=== PATIENT | female | born 2000 | race Caucasian/White ===

== ENCOUNTER 2019-10-16 23:09 | Emergency (ER) | payer MEDICAID ==
[2019-10-16 23:27] VITALS: BP 150/87
[2019-10-16] MEDS ORDERED: PENICILLIN V POTASSIUM 500 MG TABLET PO ONE (23:56)
[2019-10-16] MEDS ORDERED: PROMETHAZINE HCL 25 MG TABLET PO ONE (23:57)
[2019-10-16] MEDS ORDERED: OXYCODONE-ACETAMINOPHEN 5-325 MG TABLET PO ONE (23:57)
[2019-10-16] MEDS ORDERED: HYDROCODONE/ACETAMINOPHEN 5-325 MG (6 TAB/ER DISP) PO PRN (23:58)
--- NOTE | 2019-10-16 23:59 | ER Document Report ---
HPI - HPI Time Seen by Provider: 10/16/19 23:49 Pain Level: 5 Context: Patient is a 19-year-old female that comes to the emergency department for chief complaint of dental pain. She states that she has several known dental fractures, she had an appointment with the dentist to have either repair or extractions almost 3 weeks ago but this was postponed because of the pandemic. She states that she has had symptoms intermittently but over the past couple of days symptoms have significantly worsened. She denies swelling of the face but she reports pain to the left lower jaw and right upper gumline. She denies neck pain, throat pain, fever/chills, or any other complaints. She denies . She denies any daily medications. Past Medical History - General Information source: Patient - Social History Smoking Status: Current Every Day Smoker Frequency of alcohol use: None Drug Abuse: None Lives with: Family Family History: Reviewed & Not Pertinent Patient has suicidal ideation: No Patient has homicidal ideation: No - Medical History Medical History: Negative Surgical Hx: Negative - Immunizations Immunizations up to date: Yes Hx Diphtheria, Pertussis, Tetanus Vaccination: Yes Vertical Provider Document - CONSTITUTIONAL General Appearance: WD/WN, No Apparent Distress - Patient has pain with movement of the mouth and with talking, otherwise she does not appear to be in distress - HEENT HEENT: Atraumatic, Normal ENT Exam - ENT exam is normal except for mouth/dental exam. Oral pharyngeal exam unremarkable. See notes below., Normocephalic Mouth Diagram: 1 - Dental caries with surrounding erythema and tenderness 2 - Dental caries with surrounding erythema and tenderness. No induration or fluctuance. No abscess noted. Unremarkable exam otherwise - NECK Neck: Normal Inspection - No evidence of Ede's angina - RESPIRATORY Respiratory: Breath Sounds Normal, No Respiratory Distress - CARDIOVASCULAR Cardiovascular: Regular Rate, Regular Rhythm - GI/ABDOMEN Gastrointestinal: Abdomen Soft, Abdomen Non-Tender - BACK Back: Normal Inspection - MUSCULOSKELETAL/EXTREMETIES Musculoskeletal/Extremeties: MAEW, FROM, Non-Tender - NEURO Level of Consciousness: Awake, Alert, Appropriate Motor/Sensory: No Motor Deficit, No Sensory Deficit - DERM Integumentary: Warm, Dry, No Rash Course - Re-evaluation Re-evalutation: Patient's evaluation indicates dental infections without abscess or concerning finding otherwise. Started on antibiotics, patient already has a dentist to follow-up with in [place]. Discussed return precautions. Patient states understanding and agreement. - Vital Signs Vital signs: Temp Pulse Resp BP Pulse Ox 98.2 F 91 14 150/87 H 99 10/16/19 23:17 10/16/19 23:17 10/16/19 23:17 10/16/19 23:17 10/16/19 23:17 Discharge - Discharge Clinical Impression: Pain, dental, Dental infection Condition: Stable Disposition: HOME, SELF-CARE Instructions: Oral Narcotic Medication ([facility]) Additional Instructions: Your evaluation is consistent with a dental infection. Take the antibiotics as prescribed until they are gone. Take ibuprofen for pain if needed, if needed for more severe pain you can take the provided pain medication using the precautions. Follow-up with your dentist for additional management or this will continue to happen. Come back for any concerning or worsening symptoms including swelling of the face. Prescriptions: Penicillin V Potassium [Penicillin Vk 500 mg Tablet] 500 mg PO BID #20 tablet
== END 2019-10-17 00:08 | disposition home or self-care (01) ==
LOC: ER 23:09
DX: K04.7 Periapical abscess without sinus (principal); K02.9 Dental caries, unspecified; K08.89 Other specified disorders of teeth and supporting structures; F17.200 Nicotine dependence, unspecified, uncomplicated
CPT/HCPCS: 99282; J3490 ×2

== ENCOUNTER 2019-11-13 23:21 | Emergency (ER) | payer MEDICAID ==
[2019-11-14] MEDS ORDERED: LIDOCAINE 2% VISCOUS SOLN 15 ML UDCUP PO ONE (00:35)
--- NOTE | 2019-11-14 00:41 | ER Document Report ---
ED General - General Chief Complaint: Toothache Stated Complaint: MOUTH PAIN Time Seen by Provider: 11/14/19 00:20 Notes: 19-year-old female presents emergency department complaining of dental pain and facial swelling going on for several weeks. Patient states earlier today the left side of her face swelled up and then it got better with Benadryl and then the right side of her face swelled up and got better on its own. Patient states she is taking Tylenol, aspirin and ibuprofen for the pain, was seen on the at [facility] and was prescribed penicillin V 500 mg 4 times a day as well as Ultram 50 mg every 4 hours #10. Patient states that the Ultram did not hurt and she states that she thinks she is allergic to penicillin because her face swells up and she has to take Benadryl every time she takes it. Complains of pain whenever she eats or drinks anything. States that she had a lump on her gums on the left lower side that popped a few days ago and is no longer there. Also states that her gums are swelling. Patient states that she is supposed to have all of her teeth pulled however because she has Medicaid she has been able unable to get into a dentist to have this done. States the soonest appointment she has been able to make is for the end of November. Patient states she just started brushing her teeth. Denies using sensitive teeth toothpaste. Denies fevers. Denies difficulty breathing or swallowing. - Related Data Allergies/Adverse Reactions: No Known Allergies Allergy (Verified 11/13/19 23:30) Home Medications: TRAMADOL. PEN V Past Medical History - General Information source: Patient - Social History Smoking Status: Current Every Day Smoker Frequency of alcohol use: None Drug Abuse: None Family History: Reviewed & Not Pertinent Patient has homicidal ideation: No - Immunizations Immunizations up to date: Yes Hx Diphtheria, Pertussis, Tetanus Vaccination: Yes Review of Systems - Review of Systems Constitutional: No symptoms reported. denies: Chills, Diaphoresis, Fever EENT: See HPI, Dental problem Cardiovascular: No symptoms reported -: Yes All other systems reviewed and negative Physical Exam - Vital signs Vitals: Temp Pulse Resp BP Pulse Ox 99.4 F 102 H 16 152/87 H 99 11/13/19 23:26 11/13/19 23:26 11/13/19 23:26 11/13/19 23:26 11/13/19 23:26 Interpretation: Hypertensive, Tachycardic - Notes Notes: GENERAL: Tearful, appears uncomfortable. Interacts without difficulty. HEAD: Normocephalic, atraumatic EYES: Pupils equal, round and reactive to light, extraocular movements intact. ENT: Oral mucosa moist, tongue midline. Multiple dental caries, no abnormal erythema to the gums, significant dental plaque, no abscesses, winces whenever I touch anywhere on her gums. NECK: Full range of motion, supple, trachea midline. LUNGS: No respiratory distress. EXTREMITIES: Moves all 4 extremities spontaneously. No cyanosis. NEUROLOGICAL: Alert and oriented x3, normal speech. Course - Re-evaluation Re-evalutation: 11/14/19 00:40 Given the swelling that she has whenever she takes penicillin patient is instructed to stop taking penicillin and we will start her on clindamycin. Patient is instructed to use sensitive tooth toothpaste. Given viscous lidocaine to swish around her mouth to decrease pain. Offered dental block to one side of her mouth to take away at least some of her pain. Patient declined a dental block. Patient is encouraged to take either ibuprofen or aspirin but not to use both. Encouraged to use room temperature liquids and avoid anything that needs to be chewed. Encouraged to call every dental clinic she can think of. Provided with a list of dental clinics. Discharged home. No evidence of abscess. No evidence of anything that would impede her airway. - Vital Signs Vital signs: Temp Pulse Resp BP Pulse Ox 99.4 F 102 H 16 152/87 H 99 11/13/19 23:31 11/13/19 23:26 11/13/19 23:26 11/13/19 23:26 11/13/19 23:26 Discharge - Discharge Clinical Impression: Dental caries, Chronic dental pain Condition: Stable Disposition: HOME, SELF-CARE Additional Instructions: Toothache Your pain is due to dental decay. The tooth must be repaired in order for you to feel better. You need to call all the dentists on the lists you were given by Anaid Julian and by us. You should be rechecked immediately if you develop major swelling of the face, increasing pain, a lump in the jaw or gums, headache, or fever. I have switched you from penicillin V to clindamycin. Please stop taking the Pen V. Please use ibuprofen (Motrin or Advil) 600-800 mg every 8 hours as needed for pain or fever. You may also use acetaminophen (Tylenol) 1000 mg every 4-6 hours as needed for pain or fever. Please be aware that many medications contain acetaminophen, do not exceed a total of 1000 mg of acetaminophen every 6 hours. Do not take aspirin in addition to ibuprofen. Please use mouthwash and use toothpaste that is specifically made for sensitive teeth. This will decrease your pain.
[2019-11-14 01:00] VITALS: BP 144/90
== END 2019-11-14 01:01 | disposition home or self-care (01) ==
LOC: ER 23:21
DX: K02.9 Dental caries, unspecified (principal); G89.29 Other chronic pain; K08.9 Disorder of teeth and supporting structures, unspecified; F17.200 Nicotine dependence, unspecified, uncomplicated
CPT/HCPCS: 99282; J3490

== ENCOUNTER 2020-05-03 13:22 | Emergency (ER) | payer MEDICAID ==
[2020-05-03 13:28] VITALS: BP 158/93
--- NOTE | 2020-05-03 13:55 | ER Document Report ---
ED Oral Problem - General Chief Complaint: Toothache Stated Complaint: TOOTH PAIN Time Seen by Provider: 05/03/20 13:49 Mode of Arrival: Ambulatory Information source: Patient Notes: 19-year-old female presents to ED for complaint of pain to the right upper wisdom tooth. She states the pain is been there for a long time but has been worse for the last 2 weeks. We will give her penicillin VK for the end section, Tylenol for the pain and viscous lidocaine topically to the tooth. I have spoken with Dr. Garibay who stated she did not need to go upstairs for labor check. Constitutional: Negative for fever. HENT: Dental pain to the right upper wisdom tooth with significant decay to the tooth mild redness and inflammation around the tooth. This has been hurting for about a year worse for the last 2 weeks no swelling to the face or jaw Eyes: Negative for visual changes. Cardiovascular: Negative for chest pain. Respiratory: Negative for shortness of breath. Gastrointestinal: Negative for abdominal pain, vomiting or diarrhea. Genitourinary: Negative for dysuria. Musculoskeletal: Negative for back pain. Skin: Negative for rash. Neurological: Negative for headaches, weakness or numbness. 10 point ROS negative except as marked above and in HPI. PHYSICAL EXAMINATION: GENERAL: Well-appearing, well-nourished and in no acute distress. HEAD: Atraumatic, normocephalic. EYES: Pupils equal round extraocular movements intact, conjunctiva are normal. ENT: Dental decay to the right upper wisdom tooth with mild swelling inflammation and redness surrounding the tooth tenderness to the area no swelling to the face NECK: Normal range of motion LUNGS: No respiratory distress Musculoskeletal: Normal range of motion NEUROLOGICAL: Normal speech, normal gait. PSYCH: Normal mood, normal affect. SKIN: Warm, Dry, normal turgor, no rashes or lesions noted. - HPI Patient complains to provider of: Toothache Onset: Other - Year worse for the last 2 weeks Quality of pain: Sharp Severity: Moderate Pain Level: 3 Associated symptoms: Toothache Worsened by: Cold Relieved by: Nothing Similar symptoms previously: Yes Recently seen / treated by doctor/dentist: Yes - Related Data Allergies/Adverse Reactions: No Known Allergies Allergy (Verified 11/13/19 23:30) Past Medical History - General Information source: Patient - Social History Smoking Status: Current Every Day Smoker Cigarette use (# per day): Yes - 2 cig Smoking Education Provided: Yes Frequency of alcohol use: None Drug Abuse: None Lives with: Alone - With child Family History: Reviewed & Not Pertinent Patient has suicidal ideation: No Patient has homicidal ideation: No - Past Medical History Cardiac Medical History: Reports: None Pulmonary Medical History: Reports: None EENT Medical History: Reports: None Neurological Medical History: Reports: None Endocrine Medical History: Reports: None Renal/ Medical History: Reports: None Malignancy Medical History: Reports: None GI Medical History: Reports: None Musculoskeletal Medical History: Reports None Skin Medical History: Reports None Psychiatric Medical History: Reports: None Traumatic Medical History: Reports: None Infectious Medical History: Reports: None Surgical Hx: Negative Past Surgical History: Reports: None - Immunizations Immunizations up to date: Yes Hx Diphtheria, Pertussis, Tetanus Vaccination: Yes - march 2020 Physical Exam - Vital signs Vitals: Temp Pulse Resp BP Pulse Ox 97.8 F 76 16 158/93 H 98 05/03/20 13:26 05/03/20 13:26 05/03/20 13:26 05/03/20 13:26 05/03/20 13:26 Course - Re-evaluation Re-evalutation: 05/03/20 14:14 Presentation is most consistent with likely an infected tooth. Airway is patent. Vitals within normal limits. Patient is able swallow without any difficulty. There is no significant facial swelling. No evidence of Ede angina, apical abscess, or airway obstruction. Patient will be started on antibiotics. I've instructed to follow-up with dentistry as earliest ability for definitive management. At this time will discharge with return precautions and follow-up recommendations. Verbal discharge instructions given a the bedside and opportunity for questions given. Medication warnings reviewed. Patient is in agreement with this plan and has verbalized understanding of return precautions and the need for primary care follow-up in the next 24-72 hours. Patient was treated with penicillin VK, Tylenol, and viscous lidocaine. I did discuss with Dr. Garibay the fact that she has elevated blood pressure 158/93 with swollen ankles. She states that his ankles have been swollen for the last week to week and a half. She states she did recently see the PERINATAL NURSE and told him that she had elevated blood pressure. She does not normally have elevated blood pressure. She stated after the patient was treated in the emergency room for her dental pain please send her up to labor and delivery for an evaluation. I have spoken with the nurse Isaac the charge nurse Elizabeth and informed everyone that the patient needs her medications and then sent up to L&D. - Vital Signs Vital signs: Temp Pulse Resp BP Pulse Ox 97.8 F 76 16 158/93 H 98 05/03/20 13:26 05/03/20 13:26 05/03/20 13:26 05/03/20 13:26 05/03/20 13:26 Discharge - Discharge Clinical Impression: Pain due to dental caries, Elevated blood pressure affecting in third trimester, antepartum Condition: Stable Disposition: HOME, SELF-CARE Additional Instructions: TOOTHACHE: Your pain is due to dental decay. The tooth must be repaired in order for you to feel better. You will, therefore, be referred to a dentist. We do not have dentists on the staff at [facility]. Severe swelling or drainage around a tooth usually means a dental abscess. This also requires evaluation and treatment by the dentist, but antibiotics may be prescribed while awaiting dental treatment. You should be rechecked immediately if you develop major swelling of the face, increasing pain, a lump in the jaw or gums, headache, difficulty swallowing, or fever. PENICILLIN V K: You have been given a prescription for Penicillin VK. Your physician has determined that this is the best antibiotic for your condition. Pen VK can be taken with meals, however more of the antibiotic gets into the bloodstream if it's taken on an empty stomach. Penicillin usually has no side effects. However, allergy to penicillins is common. If you have had an allergic reaction to any drug of the penicillin family, you should never take any other penicillin. Notify your doctor at once if you develop hives, itching, swelling, faintness, or shortness of breath. Acetaminophen Acetaminophen may be taken for pain relief or fever control. It's much safer than aspirin, offering a wider range of "safe" dosages. It is safe during . Some brand names are Tylenol, Panadol, Datril, Anacin 3, Tempra, and Liquiprin. Acetaminophen can be repeated every four hours. The following are maximum recommended dosages: WEIGHT Dose Drops Elixir Chewable(80mg) (LBS.) drprs=droppers tsp=teaspoon 6 40 mg .4 ml (1/2) 6-11 80 mg .8 ml (full) 1/2 tsp 1 tab 12-16 120 mg 1 1/2 drprs 3/4 tsp 1 1/2 tabs 17-23 160 mg 2 drprs 1 tsp 2 tabs 24-30 240 mg 3 drprs 1 1/2 tsp 3 tabs 30-35 320 mg 2 tsp 4 tabs 36-41 360 mg 2 1/4 tsp 4 1/2 tabs 42-47 400 mg 2 1/2 tsp 5 tabs 48-53 480 mg 3 tsp 6 tabs 54-59 520 mg 3 1/4 tsp 6 1/2 tabs 60-64 560 mg 3 1/2 tsp 7 tabs 65-70 600 mg 3 3/4 tsp 7 1/2 tabs 71-76 640 mg 4 tsp 8 tabs 77-82 720 mg 4 1/2 tsp 9 tabs 83-88 800 mg 5 tsp 10 tabs >89 pounds or adults 650 mg to 900 mg Acetaminophen can be repeated every four hours. Maximum daily dose not to exceed 4000 mg. These maximum recommended dosages are slightly higher than the dosages written on the product container, but these dosages are very safe and well below the toxic dosage for acetaminophen. You have been given a syringe of viscous lidocaine. Please place a small amount on the affected tooth every 4 hours as needed for pain. Please do not use more often than every 4 hours or you can erode the skin on your gums. Please also be careful that it will numb your tongue and your cheek. Please do not bite your tongue and cheek. Please follow-up with a dentist as soon as possible. As soon as you are discharged from the emergency room go to labor and delivery due to your elevated blood pressure and swollen ankles. I have spoken with Dr. Garibay and she stated you are to come up to the labor and delivery as soon as you are discharged. FOLLOW-UP CARE: You have been referred for follow-up care to the dentists listed below. Call the dentists office for an appointment as you were instructed or within the next two days. If you experience worsening or a significant change in your symptoms, notify the physician immediately or return to the Emergency Department at any time for re-evaluation. [facility] [address] [place] [address] [facility] [address] [facility] [address] [email or web address] [address] [place] [address] Wednesday- 8:00am to 5:00 pm Will see [facility] other [facility]. Charges based on income and family size and accepts Medicare, Medicaid, and Insurances Will pull molars [facility] [id number] Hours of Operation 8:00 am - 4:30 pm weekdays The following dental offices accept Medicaid: [facility] Dr. Olsen Dr. Brooks Dr. Rodriguez Dr. Batista Ronald Vazquez, Gabbie, and Angelia oral surgery Dr. Wills ([place]) Dr. Martínez ([place]) [facility] Drs. Kan ([place]) Dr. Hair ([place]) [facility] Dr. Sherman ([place]) Drs. Salazar and ([place]) Medicaid Care Line Prescriptions: Penicillin V Potassium [Penicillin Vk 500 mg Tablet] 500 mg PO BID #20 tablet Forms: Elevated Blood Pressure, Smoking Cessation Education
[2020-05-03] MEDS ORDERED: ACETAMINOPHEN 325 MG TABLET PO ONE (14:01)
[2020-05-03] MEDS ORDERED: LIDOCAINE 2% VISCOUS SOLN 15 ML UDCUP PO ONE (14:02)
[2020-05-03] MEDS ORDERED: PENICILLIN V POTASSIUM 500 MG TABLET PO ONE (14:02)
== END 2020-05-03 14:34 | disposition home or self-care (01) ==
LOC: ER 13:22
DX: O26.893 Other specified pregnancy related conditions, third trimester (principal); K02.9 Dental caries, unspecified; R03.0 Elevated blood-pressure reading, without diagnosis of hypertension; O99.333 Smoking (tobacco) complicating pregnancy, third trimester; F17.210 Nicotine dependence, cigarettes, uncomplicated
CPT/HCPCS: 99283; J3490 ×3

== ENCOUNTER 2020-05-03 14:36 | Outpatient (CLI) | payer MEDICAID | END 2020-05-03 15:01 | disposition left against medical advice (07) | LOC: LC 14:36 | PROVIDERS: ATTEND Student in an Organized Health Care Education/Training Program | DX: Z53.9 Procedure and treatment not carried out, unspecified reason (principal) ==

== ENCOUNTER 2020-05-07 14:39 | Outpatient (CLI) | payer MEDICAID ==
[2020-05-07 15:26] LABS: HEMATOCRIT 29.8 % (36.0-47.0); HEMOGLOBIN 10.4 g/dL (12.0-15.5); MEAN CORPUSCULAR HEMOGLOBIN 28.7 pg (27.0-33.4); MEAN CORPUSCULAR HGB CONC 34.9 g/dL (32.0-36.0); MEAN CORPUSCULAR VOLUME 82 fl (80-97); PLATELET COUNT 177 10^3/uL (150-450); RED BLOOD COUNT 3.63 10^6/uL (3.72-5.28); RED CELL DISTRIBUTION WIDTH 15.8 % (11.5-14.0); WHITE BLOOD COUNT 10.4 10^3/uL (4.0-10.5)
[2020-05-07 15:42] LABS: ALBUMIN 3.1 g/dL (3.5-5.0); ALKALINE PHOSPHATASE 208 U/L (38-126); ANION GAP 6 (5-19); ASPARTATE AMINO TRANSFERASE 12 U/L (14-36); BILIRUBIN,DIRECT 0.1 mg/dL (0.0-0.4); BILIRUBIN,TOTAL 0.4 mg/dL (0.2-1.3); BLOOD UREA NITROGEN 6 mg/dL (7-20); CALCIUM 8.7 mg/dL (8.4-10.2); CARBON DIOXIDE 20 mmol/L (22-30); CHLORIDE 106 mmol/L (98-107); GLUCOSE 76 mg/dL (75-110); POTASSIUM 4.2 mmol/L (3.6-5.0); TOTAL PROTEIN 5.9 g/dL (6.3-8.2); URIC ACID 4.7 mg/dL (2.5-6.2)
[2020-05-07 15:46] LABS: APPEARANCE,URINE SLIGHTLY-CLOUDY; BILIRUBIN,URINE NEGATIVE (NEGATIVE); COLOR,URINE YELLOW; GLUCOSE, URINE NEGATIVE (NEGATIVE); KETONES,URINE NEGATIVE (NEGATIVE); LEUKOCYTE ESTERASE,URINE TRACE (NEGATIVE); NITRITE,URINE NEGATIVE (NEGATIVE); PROTEIN,URINE NEGATIVE (NEGATIVE); URINE SPECIFIC GRAVITY 1.016; UROBILINOGEN,URINE NEGATIVE mg/dL (<2.0)
[2020-05-07 15:58] LABS: URINE AMPHETAMINES SCREEN NEGATIVE; URINE BARBITURATES SCREEN NEGATIVE; URINE BENZODIAZEPINES SCREEN NEGATIVE; URINE COCAINE SCREEN NEGATIVE; URINE METHADONE SCREEN NEGATIVE; URINE PHENCYCLIDINE SCREEN NEGATIVE
[2020-05-07 16:01] LABS: URINE MARIJUANA (THC) SCREEN UNCONFIRMED POSITIVE
[2020-05-07 16:23] LABS: UR PRO/CREAT RATIO RESULT 0.2 mg/mg (0.0-0.2); URINE CREATININE 75.8 mg/dL (16-327); URINE PROTEIN 16.3 mg/dL (<12)
== END 2020-05-07 16:20 | disposition home or self-care (01) ==
LOC: LC 14:39
PROVIDERS: ATTEND Obstetrics & Gynecology
DX: O14.93 Unspecified pre-eclampsia, third trimester (principal); Z3A.36 36 weeks gestation of pregnancy
CPT/HCPCS: 36415; 80053; 80307; 81001; 82570; 84156; 84550; 85027

== ENCOUNTER 2020-05-22 23:31 | Outpatient (CLI) | payer MEDICAID ==
[2020-05-23 00:30] LABS: APPEARANCE,URINE CLEAR; BILIRUBIN,URINE NEGATIVE (NEGATIVE); COLOR,URINE AMBER; GLUCOSE, URINE NEGATIVE (NEGATIVE); KETONES,URINE NEGATIVE (NEGATIVE); LEUKOCYTE ESTERASE,URINE TRACE (NEGATIVE); NITRITE,URINE NEGATIVE (NEGATIVE); PROTEIN,URINE 100 mg/dL (NEGATIVE); URINE SPECIFIC GRAVITY 1.029
[2020-05-23 00:57] LABS: ABSOLUTE BASOPHILS # (AUTO) 0.1 10^3/uL (0.0-0.2); ABSOLUTE EOSINOPHILS # (AUTO) 0.1 10^3/uL (0.0-0.6); ABSOLUTE LYMPHOCYTES (AUTO) 1.2 10^3/uL (0.5-4.7); ABSOLUTE MONOCYTES (AUTO) 0.8 10^3/uL (0.1-1.4); ABSOLUTE NEUT (AUTO) 8.1 10^3/uL (1.7-8.2); BASOPHILS % (AUTO) 0.6 % (0-2); EOSINOPHILS % (AUTO) 0.6 % (0-6); HEMATOCRIT 28.7 % (36.0-47.0); HEMOGLOBIN 9.8 g/dL (12.0-15.5); LYMPHOCYTES % (AUTO) 11.4 % (13-45); MEAN CORPUSCULAR HEMOGLOBIN 28.4 pg (27.0-33.4); MEAN CORPUSCULAR HGB CONC 34.2 g/dL (32.0-36.0); MEAN CORPUSCULAR VOLUME 83 fl (80-97); MONOCYTES % (AUTO) 7.4 % (3-13); PLATELET COUNT 196 10^3/uL (150-450); RED BLOOD COUNT 3.46 10^6/uL (3.72-5.28); TOTAL CELLS COUNTED % (AUTO) 100 %; WHITE BLOOD COUNT 10.2 10^3/uL (4.0-10.5)
[2020-05-23 01:16] LABS: URINE AMPHETAMINES SCREEN NEGATIVE; URINE BARBITURATES SCREEN NEGATIVE; URINE BENZODIAZEPINES SCREEN NEGATIVE; URINE COCAINE SCREEN NEGATIVE; URINE METHADONE SCREEN NEGATIVE; URINE PHENCYCLIDINE SCREEN NEGATIVE
[2020-05-23 01:17] LABS: ALKALINE PHOSPHATASE 200 U/L (38-126); ANION GAP 8 (5-19); ASPARTATE AMINO TRANSFERASE 16 U/L (14-36); BILIRUBIN,DIRECT 0.1 mg/dL (0.0-0.4); BILIRUBIN,TOTAL 0.5 mg/dL (0.2-1.3); BLOOD UREA NITROGEN 12 mg/dL (7-20); CALCIUM 8.6 mg/dL (8.4-10.2); CARBON DIOXIDE 18 mmol/L (22-30); CHLORIDE 107 mmol/L (98-107); GLUCOSE 81 mg/dL (75-110); POTASSIUM 3.8 mmol/L (3.6-5.0); TOTAL PROTEIN 5.7 g/dL (6.3-8.2); URIC ACID 5.7 mg/dL (2.5-6.2)
[2020-05-23 01:18] LABS: URINE MARIJUANA (THC) SCREEN UNCONFIRMED POSITIVE
== END 2020-05-23 00:55 | disposition left against medical advice (07) ==
LOC: LC 23:31
PROVIDERS: ATTEND Obstetrics & Gynecology Gynecology
DX: O26.893 Other specified pregnancy related conditions, third trimester (principal); Z3A.36 36 weeks gestation of pregnancy
CPT/HCPCS: 36415; 80053; 80307; 81005; 83615; 84550; 85025